=== PATIENT | female | born 1980 | race Caucasian/White ===

== ENCOUNTER 2018-04-27 04:44 | Emergency (ER) | payer SELFPAY ==
[~2018-04-27] VITALS: Ht 165.1 cm; Wt 86.2 kg
--- NOTE | 2018-04-27 05:18 | PHYS DOC ---
Past Medical History Past Medical History: Migraines Additional Past Medical Histor: MENENGITIS 1982, Past Surgical History: Appendectomy Additional Past Surgical Histo: SHOULDER SURG 1994, Alcohol Use: Occasionally Drug Use: None Adult General Chief Complaint Chief Complaint: HEADACHE HPI HPI Patient is a 37-year-old female who presents to the emergency department for evaluation. She states she has a history of past migraine headaches, and states that she went to bed, and awakened at about 1 AM with a mild left headache, which has gradually worsened into her typical migraine headache. She states she last needed an emergency department visit for migraine headache that he urine a half ago but she does have daily headaches. She states there is nothing different about her current headache than her prior migraine headaches. The headache is left-sided. She has had some photophobia, and some vomiting, but denies any neck pain or stiffness, fevers, confusion, numbness, weakness, or vision changes. This headache is not "worst headache of her life", and is the same as her normal migraine headaches. She does take zigv-[id number] analgesics only, no other medications for her migraine headaches. She states she has had brain imaging in the past which she states has been negative. There are no alleviating, or exacerbating factors to her symptoms except as noted above. Review of Systems Review of Systems Constitutional: Denies fever or chills [] Eyes: Denies change in visual acuity, redness, or eye pain [] HENT: Denies nasal congestion or sore throat [] Respiratory: Denies cough or shortness of breath [] Cardiovascular: The patient denies any shortness of breath, chest pain, palpitations, or orthopnea [] GI: Denies abdominal pain, bloody stools or diarrhea [] : Denies dysuria or hematuria [] Musculoskeletal: Denies back pain or joint pain [] Integument: Denies rash or skin lesions [] Neurologic: Denies focal weakness or sensory changes [] Endocrine: Denies polyuria or polydipsia [] All other systems were reviewed and found to be within normal limits, except as documented in this note. Current Medications Current Medications Current Medications Medications (Trade) Dose Ordered Sig/Vandana Start Time Stop Time Status Last Admin Dose Admin Diphenhydramine HCl (Benadryl) 25 mg 1X ONCE 04/27/18 05:30 04/27/18 05:31 DC 04/27/18 05:41 25 MG Ketorolac Tromethamine (Toradol 30mg Vial) 30 mg 1X ONCE 04/27/18 05:30 04/27/18 05:31 DC 04/27/18 05:42 30 MG Prochlorperazine Edisylate (Compazine) 10 mg 1X ONCE 04/27/18 05:30 04/27/18 05:31 DC 04/27/18 05:42 10 MG Sodium Chloride 1,000 ml @ 1,000 mls/hr 1X ONCE 04/27/18 05:30 04/27/18 06:29 04/27/18 05:35 1,000 MLS/HR Allergies Allergies Allergies Coded Allergies Type Severity Reaction Last Updated Verified Penicillins Allergy Intermediate 04/27/18 Yes Physical Exam Physical Exam PHYSICAL EXAM: CONSTITUTIONAL: Well developed, well nourished HEAD: normocephalic, atraumatic EENT: PERRL, EOMI. Conjunctivae normal color, sclerae non-icteric; moist mucous membranes. NECK: Supple, non-tender; no meningismus. LUNGS: Lungs CTA, breathing even and unlabored. Normal air movement. HEART: Regular rate and rhythm, no murmur CHEST: No deformity; non-tender ABDOMEN: The abdomen is soft, and non-tender, no masses or bruits. EXTREM: Normal ROM; no deformity, no calf tenderness. Normal pulses palpable in all extremities. There is no pedal edema. SKIN: No rash; no diaphoresis NEURO: Alert; normal speech and cognition; CN's grossly intact; strength grossly intact without focal deficit. BACK: No CVA TTP. Current Patient Data Vital Signs Vital Signs Date Time Temp Pulse Resp B/P (MAP) Pulse Ox O2 Delivery O2 Flow Rate FiO2 04/27/18 05:05 98.4 78 20 134/59 (84) 100 Room Air 98.4 EKG EKG [] Radiology/Procedures Radiology/Procedures [] Course & Med Decision Making Course & Med Decision Making 6:00 AM: The patient's condition remained stable. She is feeling significantly better and her headache has significantly improved. I discussed importance of close neurology follow-up and return precautions. Dragon Disclaimer Dragon Disclaimer This electronic medical record was generated, in whole or in part, using a voice recognition dictation system. Departure Departure Impression: Primary Impression: Migraine headache Disposition: 01 HOME, SELF-CARE Condition: IMPROVED Referrals: NO PCP (PCP) MARIANA AMEZCUA MD Patient Instructions: Migraine Headache Scripts Sumatriptan Succinate (IMITREX) 50 Mg Tablet 50 MG PO ONCE PRN for MIGRAINE HEADACHE, #20 TAB Maximum dose 200 mg per day Prov: JESSENIA MURILLO MD 04/27/18 JESSENIA MURILLO MD Apr 27, 2018 05:18
[2018-04-27] MEDS: IV NORMAL SALINE 1000ML BAG 1,000 ML IV ONE (05:35)
[2018-04-27] MEDS: diphenhydrAMINE 50 MG/ML VIAL IVP ONE (05:41)
[2018-04-27] MEDS: PROCHLORPERAZINE 10 MG/2 ML VIAL. IV ONE (05:42)
[2018-04-27] MEDS: KETOROLAC 30 MG/ML VIAL. IV ONE (05:42)
[2018-04-27] MEDS ORDERED: SUMA50TA3 PO (05:53)
[2018-04-27 05:55] VITALS: BP 130/61
== END 2018-04-27 06:15 | disposition home or self-care (01) ==
LOC: ER 04:44
DX: G43.909 Migraine, unspecified, not intractable, without status migrainosus (principal); R11.10 Vomiting, unspecified; Z90.89 Acquired absence of other organs; Z88.0 Allergy status to penicillin
CPT/HCPCS: 96361; 96374; 96375; 99284; J0780; J1200; J1885; J7030